=== PATIENT | male | born 1970 | race Caucasian/White ===

== ENCOUNTER 2017-12-19 03:50 | Inpatient (IN) ==
--- NOTE | 2017-12-19 03:56 | Emergency Department Note ---
Disposition Clinical Impression: Right leg pain, Arterial occlusion Disposition: Admitted As Inpatient Condition: Good General Adult HPI - General Time Seen by Provider: 12/19/17 03:53 - Related Data Allergies Allergy/AdvReac Type Severity Reaction Status Date / Time No Known Allergies Allergy Verified 12/19/17 01:12 Past Medical History - Past Medical History Medical history: Reports: hypertension Surgical history: Reports: no surgical history Psychiatric history: Reports: no psych history - Social History Smoking Status: Current every day smoker Smokeless Tobacco Status: No Alcohol use: Reports: occasionally Drug use: Reports: none Course Vital Signs Temperature 98.1 F 12/19/17 03:59 Pulse Rate 72 12/19/17 03:59 Respiratory Rate 20 12/19/17 03:59 Blood Pressure 143/80 12/19/17 03:59 O2 Sat by Pulse Oximetry 99 12/19/17 03:59 Temperature 98.1 F 12/19/17 03:59 Pulse Rate 70 12/19/17 06:30 Respiratory Rate 20 12/19/17 06:30 Blood Pressure 140/80 12/19/17 06:30 O2 Sat by Pulse Oximetry 98 12/19/17 06:30 Oxygen Delivery Oxygen Delivery Room Air Critical Care Time Critical Care Time: Yes Total Critical Care Time: 30 Attestation: The high probability of a clinically significant, sudden or life threatening deterioration of the [] system(s) required my full and direct attention, intervention and personal management. The aggregate critical care time was [] minutes. This time is in addition to time spent performing reported procedures but includes the following: [] Data Review and interpretation [] Patient assessment and monitoring of vital signs [] Documentation [] Medication orders and management Attestation Statement - Attestation Attestation: I examined this patient and my medical decision-making was reviewed with the Resident Physician. I agree with the documented findings, disposition and treatment plan as described except to the extent set forth below. [id number] time provided Patient arrives from an outside facility with atraumatic right lower extremity pain starting today. He does note intermittent muscle cramps over the past several weeks. Pain extends from the right mid lower extremity distally. He was sent with concern for arterial insufficiency. The patient's right foot is pink warm and dry upon arrival. Heparin was initiated by the sending facility
[2017-12-19] MEDS ORDERED: Heparin 25,000 UNIT/500 ML D5W 25,000 UNIT/500 ML BAG IVC SCH (04:00)
--- NOTE | 2017-12-19 04:02 | Emergency Department Note ---
Disposition Clinical Impression: Right leg pain, Arterial occlusion Disposition: Admitted As Inpatient Condition: Good Referrals: NONE,PCP [Primary Care Provider] - Time of Disposition: 06:34 General Adult HPI - General Time Seen by Provider: 12/19/17 03:53 Source: patient Mode of arrival: ambulatory Limitations: no limitations Nursing Notes Reviewed: Yes Vital Signs Reviewed: Yes - History of Present Illness HPI Narrative: 47-year-old male tobacco abuser presents emergency department as a transfer from outside facility for reported cold right foot. Patient reports waken up yesterday morning 8 o'clock with pain mostly to his right lower extremity, ongoing for approximately 20 hours. He does have a history of sciatica and states it typically radiates from his back down to his leg. He was evaluated outside facility reports of a dusky right foot and palpable pulse. The concern is for possible occlusion. He has no history of coronary arterial disease. No history stent placement. No calf tenderness. No recent injury or trauma No recent long-distance travel. He does not take any blood thinning medications. He was given heparin prior to transfer over to this facility for evaluation. He denies any G.I. bleed symptoms. - Related Data Allergies Allergy/AdvReac Type Severity Reaction Status Date / Time No Known Allergies Allergy Verified 12/19/17 01:12 All systems ED: reviewed and negative except as stated. Review of Systems: As Per HPI Constitutional: Denies: fever Cardiovascular: Denies: chest pain, palpitations Respiratory: Denies: dyspnea Gastrointestinal: Denies: abdominal pain, nausea, vomiting Musculoskeletal: Denies: back pain Neurological: Denies: headache Past Medical History - Past Medical History Attestation: Yes The following information was validated with the patient. Source: patient Medical history: Reports: hypertension Surgical history: Reports: no surgical history Psychiatric history: Reports: no psych history - Social History Smoking Status: Current every day smoker Smokeless Tobacco Status: No Alcohol use: Reports: occasionally Drug use: Reports: none Physical Exam - General Limitations: no limitations General appearance: alert, in no apparent distress - Head Head exam: atraumatic, normocephalic, normal inspection - Neck Neck exam: Present: normal inspection, full ROM, trachea midline - Chest Chest inspection: Present: normal inspection, symmetric chest wall rise - Respiratory Respiratory exam: Present: normal lung sounds bilaterally. Absent: respiratory distress, wheezes - Cardiovascular Cardiovascular exam: Present: regular rate, normal rhythm, normal heart sounds - Expanded Cardiovascular Exam Peripheral pulses: 0: posterior tibialis (R), dorsalis pedis (R), 2+: radial (R) , radial (L), posterior tibialis (L), dorsalis pedis (L) - Extremities Exam Extremities exam: Present: full ROM, normal capillary refill, other (The right foot is slightly cooler to the touch compared to the left). Absent: tenderness , pedal edema, calf tenderness - Neurological Exam Neurological exam: Present: alert, oriented X3 - Psychiatric Psychiatric exam: Present: normal affect, normal mood - Skin Skin exam: Present: dry, intact, normal color, pallor, other (Right foot is cool to the touch) Course Course Narrative: Patient presents with cold right lower extremity. Reported palpable pulse at outside facility. He has good cap refill. Difficult to palpate a pulse at this time. Unable to obtain with a Doppler ultrasound. Will obtain ankle brachial index. He has been placed on heparin. No prior history of peripheral vascular disease. No history of coronary arterial disease. He does smoke. Currently his pain is controlled at this time. - Reevaluation(s) Reevaluation #1: Cardio Doppler has been patient and will be arriving to perform DANNIE. Patient appears in no acute distress. No further concerns at this time. Time: 04:50 Reevaluation #2: Preliminary report from cardio Doppler ultrasonography for with abnormal DANNIE in the right leg, unable to obtain any read. Patient is already heparinized. Will contact vascular surgery for consultation and plan for hospitalist admission. Time: 06:23 - Consultations Consultation #1: Spoke to on-call vascular surgeon Dr. Brennan the states this is a very unusual case to have acute arterial occlusion recommends a CTA runoff to evaluate for any other abnormalities. Patient denies any abdominal pain. At this time will evaluate with EKG as well. He has no history of a regular heart rhythm or atrial fibrillation. Time: 06:26 Consultation #2: Spoke with on-call hospitalist marisabel Bird to admit for arterial occlusion. No further orders at this time, CTA runoff pending Time: 06:34 Vital Signs Temperature 98.1 F 12/19/17 03:59 Pulse Rate 72 12/19/17 03:59 Respiratory Rate 20 12/19/17 03:59 Blood Pressure 143/80 12/19/17 03:59 O2 Sat by Pulse Oximetry 99 12/19/17 03:59 Temperature 98.1 F 12/19/17 03:59 Pulse Rate 70 12/19/17 06:30 Respiratory Rate 20 12/19/17 06:30 Blood Pressure 140/80 12/19/17 06:30 O2 Sat by Pulse Oximetry 98 12/19/17 06:30 Oxygen Delivery Oxygen Delivery Room Air Medical Decision Making - MDM Narrative Medical decision making narrative: Patient was discussed with my attending physician who agrees with ED management and final disposition. They independently evaluated the patient. Please refer to their attestation to this encounter for additional information. This note was generated by [employer] voice recognition software and as a result grammatical or spelling errors may occur using this program. - Medical Records Medical records reviewed: Yes I reviewed the patient's medical records. - Lab Data Lab results reviewed: Yes I reviewed the patient's lab results.
[2017-12-19] MEDS ORDERED: Isovue-370 500 ML INFUS..BTL IV ONE (06:27)
[2017-12-19] MEDS ORDERED: *HR* FentaNYL (PF) 100 MCG/2 ML VIAL IVP ONE (06:31)
[2017-12-19] MEDS ORDERED: Naloxone 0.4 MG/ML INJ IVP PRN ×2 (06:41→13:03)
[2017-12-19] MEDS ORDERED: Acetaminophen 325 MG TABLET PO PRN ×2 (06:41→13:03)
[2017-12-19] MEDS ORDERED: *HR* HYDROcodone/Acet 5/325 mg TABLET PO PRN (06:41)
[2017-12-19] MEDS ORDERED: *HR* OxyCODONE Immed Rel 5 MG TABLET PO PRN ×3 (06:41→13:03)
--- NOTE | 2017-12-19 08:48 | Anesthesia Evaluation PreOp ---
Date of Encounter: 12/19/17 Time of Encounter: 09:35 - Past History Planned Operation: Right Lower Extremity Thrombectomy Cardiac History: Denies any Significant Hx Pulmonary History: Smoker (20+ years), Snore ARBORER History: Denies Any Significant HX Other Medical History: GERD Anesthesia History: No Prior Anesthetic Complications, Past Anesthesia Alcohol Use: occasionally Drug use: none Medications and Allergies 3 Allergy/AdvReac Type Severity Reaction Status Date / Time No Known Allergies Allergy Verified 12/19/17 01:12 - Meds/Allergy Pre-op Review Medications Reviewed: Yes Allergies Reviewed: Yes Beta Blockers on Current Med List: No Anesthesia Results - Labs Laboratory Tests 12/19/17 12/19/17 12/19/17 02:12 02:12 02:12 WBC 13.7 H Hgb 15.9 Hct 45.4 Plt Count 249 PT 11.4 INR 1.0 APTT 36.5 H Sodium 137 Potassium 3.6 BUN 21 H Creatinine 1.09 Anesthesia Exam Vital Signs/O2 Sat, Most Current Temp Pulse Resp BP Pulse Ox 98.2 F 64 18 149/94 95 12/19/17 08:04 12/19/17 08:04 12/19/17 08:04 12/19/17 08:04 12/19/17 08:04 Height: 5'9''/1.75m Weight: 190 lbs/86.2 kg NPO (# of Hours): 8 Pain Scale: 6 (right leg) Pain Scale Used: Numeric (1 - 10) - HEENT Pupil (Motor): EOMI Mallampati: III Teeth: Normal (chipped upper left molar) Oral Opening: Greater than 3 - ARBORER LOC: Oriented ARBORER Motor: Normal RUE, Normal LUE, Normal RLE, Normal LLE, Normal Face ARBORER Sensory: Normal: RUE, LUE, LLE, Face, Deficit: RLE - Cardiac Rhythm: Regular Murmur: None - Pulmonary Breath Sounds: bilateral Clear Respiratory Effort: Symmetrical Anesthesia Assess/Plan ASA Score: 2 Modified John Scale for Level of Consciousness: Cooperative, oriented, and tranquil Anesthetic Plan: General Monitoring Plan: Standard Monitors Recovery Plan: PACU
--- NOTE | 2017-12-19 08:52 | Vascular/Endovasc Consult Note ---
Date of Encounter: 12/19/17 Time of Encounter: 08:15 Assessment and Plan (1) Ischemia of right lower extremity Current Visit: Yes Status: Acute The pathophysiology and natural history of acute limb ischemia was discussed with the patient and all questions were answered. The patient has a right iliac occlusion as well as a right popliteal and proximal tibial artery occlusion by CT scan. Given the delayed presentation and severity of his symptoms immediate revascularization is recommended. The risk, benefits and alternatives were discussed and all questions were answered. He was informed that given the severity and delayed presentation is at an increased risk for amputation. He expressed understanding and wishes to proceed. (2) Tobacco abuse Current Visit: Yes Status: Chronic The patient reports he smokes cigars daily. He was advised to discontinue smoking immediately. That continued tobacco abuse and likely worsen his atherosclerosis and associated complications including heart attack, stroke, limb loss, organ failure and/or . He expressed understanding. (3) Moderate protein malnutrition Current Visit: Yes Status: Acute - History of Present Illness Consult date: 12/19/17 Requesting physician: Zenon Keller Consult reason: Acute right lower extremity ischemia Chief complaint: Right leg pain and parasthesias History of present illness: Mr. Flores is a 47 year old male with a history of tobacco abuse. The patient reports a 2 week history of right lower extremity calf claudication. He reports that his symptoms became acutely worse yesterday morning. He did not seek immediate medical attention if that he had a nerve problem. Due to the progressive nature of his symptoms he presented to the emergency room and was transferred to [facility]. The patient underwent vascular labs and is found have no significant pedal signals by Doppler in the right lower extremity. Vascular surgery was counsulted for further evaluation. The patient denies any fevers or chills. He denies any palpitations. He denies any symptoms prior to 2 weeks ago. He denies any chest pain or shortness of breath. Past Med Surg Social Fam HX - Past Medical History Medical history: hypertension Psychiatric history: no psych history - Past Surgical History Surgical History: no surgical history, cholecystectomy, herniorrhaphy, tonsilectomy Additional surgical history: crushed big toe, inguinal hernia repair - Social History Smoking Status: Current every day smoker Packs per day: 0.5 Smokeless Tobacco Status: No Alcohol use: occasionally Drug use: none Medications and Allergies 3 Allergy/AdvReac Type Severity Reaction Status Date / Time No Known Allergies Allergy Verified 12/19/17 01:12 All Systems Review: The remainder of the systems were reviewed and are negative Exam Vital Signs, Last 4 Hours Temp Pulse Resp BP Pulse Ox 12/19/17 08:04 98.2 F 64 18 149/94 95 General: Present: Conversant, No Apparent Distress HEENT: Present: Pupils equal Neck: Absent: JVD, Lymphadenopathy, Left Carotid bruit, Right Carotid bruit Cardiac: Present: Reg Rate and Rhythm, Normal S1 and S2, No Murmur Lungs: Present: Normal Breath Sounds, No Wheeze, Rales, Rhonchi Neuro: Present: Alert and responsive, Other (Decreased right lower extremity motor and sensory function.) Abdomen: Present: Soft, Non-tender. Absent: Masses Vascular: Present: Normal capillary refill (Left lower extremity), Capillary refill delayed (Right lower extremity), Pulse, absent (Right femoral, popliteal , posterior tibial and dorsalis pedis), Pulse, normal (Left lower extremity) Skin: Present: No rashes noted on visualized skin Consult Discharge Plan - Plan
[2017-12-19] MEDS ORDERED: *HR* Propofol 200 MG/20 ML VIAL IVP ONE (09:22)
[2017-12-19] MEDS ORDERED: *HR* FentaNYL (PF) 100 MCG/2 ML VIAL ONE ×2 (09:22→11:20)
[2017-12-19] MEDS ORDERED: *HR* Midazolam HCl 2 MG/2 ML VIAL ONE (09:22)
[2017-12-19] MEDS ORDERED: *HR* Succinylcholine 200 MG/10 ML VIAL IVP ONE (09:23)
[2017-12-19] MEDS ORDERED: Lidocaine -MPF 2% 2 ML VIAL ONE (09:23)
[2017-12-19] MEDS ORDERED: *HR* Rocuronium Bromide 50 MG/5 ML VIAL ONE (09:23)
[2017-12-19] MEDS ORDERED: *HR* Phenylephrine 10 MG/ML VIAL ONE (09:27)
[2017-12-19] MEDS ORDERED: Vancomycin 1,000 MG VIAL ONE (09:30)
[2017-12-19] MEDS ORDERED: Heparin 1,000 UNITS/500 mL 1,500 ML ONE (09:30)
[2017-12-19] MEDS ORDERED: *HR* Labetalol 100 MG/20 ML MDV ONE (09:32)
[2017-12-19] MEDS ORDERED: NiCARdipine 2.5 MG/10 ML Syringe IVPB ONE (09:32)
[2017-12-19] MEDS ORDERED: *HR* Heparin 5,000 UNIT/ML VIAL ONE (09:35)
[2017-12-19] MEDS ORDERED: Albuterol 2.5 MG/3 ML NEBULIZER IH ONE (09:38)
[2017-12-19] MEDS ORDERED: Lidocaine -MPF 4% 5 ML AMPUL ONE (09:39)
[2017-12-19] MEDS ORDERED: Albuterol 2.5 MG/3 ML NEBULIZER ONE (09:40)
[2017-12-19] MEDS ORDERED: *HR* HYDROmorphone 2 MG/ML SYRINGE ONE (10:06)
[2017-12-19] MEDS ORDERED: Bupivacaine-MPF 0.25% 10 ML VIAL ONE (11:00)
[2017-12-19] MEDS ORDERED: Ondansetron 4 MG/2 ML VIAL ONE (11:06)
[2017-12-19] MEDS ORDERED: EPHEDrine 50 MG/ML VIAL ONE (11:37)
[2017-12-19] MEDS ORDERED: ceFAZolin 2,000 MG in Water for inj. (sterile) 20 ML 10 ML IVP ONE (11:38)
[2017-12-19] MEDS ORDERED: ceFAZolin 2,000 MG in Water for inj. (sterile) 20 ML 20 ML IVP ONE (12:00)
[2017-12-19] MEDS ORDERED: Ondansetron 4 MG/2 ML VIAL IVP ONE (12:03)
[2017-12-19] MEDS ORDERED: *HR* HYDROmorphone (PF) 1 MG/ML SYRINGE IVP PRN (12:03)
[2017-12-19] MEDS ORDERED: *HR* Promethazine 25 MG/ML VIAL IVP PRN (12:03)
--- NOTE | 2017-12-19 12:41 | Operative Note ---
Date of procedure: 12/19/17 Pre-op diagnosis: Acute right lower extremity ischemia Post-op diagnosis: same Procedure: 1. Right lower extremity thrombectomy with 4 cook islander and 5 cook islander christelle embolectomy catheter. Complications: None Anesthesia: GETA Surgeon: Maksim Brennan Was there an assistant football coach present: No Estimated blood loss (cc): 100 Specimen: Right lower extremity thrombus Condition: stable Disposition: same day Procedure in Detail: Indication: The patient is a 47-year-old male with history of tobacco abuse. Patient reports approximately two-week history of progressive right lower extremity disabling claudication. Approximately 24 to 36 hours ago he developed acute progression of his pain in his right calf and foot. He reported decreased sensation and motor function. He presented to the emergency room this morning was found have an ankle brachial index of 0.0. Emergent revascularization was recommended to reduce his risk of limb loss alleviate his symptoms. Procedure: The patient was identified in the preoperative area. The risks, benefits and alternatives were discussed and all questions were answered. The patient was taken to the operating room and placed in the supine position on the operating room table. After the induction of general endotracheal anesthesia, the patient was cleaned and draped in the normal sterile fashion. An oblique incision was made over the right femoral vessels sharply. Hemostasis was obtained with electrocautery. Through a process of blunt, sharp and electrocautery dissection, the distal external iliac, deep and superficial femoral arteries were dissected and surrounded with vessel loops. The patient received a bolus of heparin and the vessels were occluded with the vessel loops. A transverse arteriotomy was made low on the common femoral artery. No flow was noted on release of the proximal loop. A 5 cook islander christelle catheter was passed into the aorta and inflated. It was withdrawn and significant acute thromboembolic material was retrieved. Multiple additional passes revealed no additional thrombus. The specimen was then sent to pathology. Brisk, pulsatile antegrade flow was then noted through the common femoral artery. A 4 cook islander christelle catheter was passed distally and no thrombus was retrieved from the deep femoral artery. A 4 cook islander christelle catheter was passed distally into the tibial vessels. Extensive acute thrombus was removed. Additional passes resulted additional thrombus retrieval. The catheter was passed distally until multiple retrievals resulted in no additional thrombus. Retrograde flow was noted through the superficial femoral artery. The femoral vessels were flushed with heparin. The arteriotomy was reapproximated with 6-0 Prolene. Flow was restored. A polyphasic signal was identified in the posterior tibial and dorsalis pedis arteries below the ankle. The wound was irrigated with antibiotic containing saline. Hemostasis was obtained with electrocautery. The wound was reapproximated with 2-0 and 3-0 vicryl. Skin was reapproximated with 3-0 Monocryl. Local anesthetic was infused along the incision. Sterile dressings were applied. The patient was extubated and taken to the recover room in stable condition.
--- NOTE | 2017-12-19 12:58 | Anesthesia Evaluation Post Op ---
Date of Encounter: 12/19/17 Time of Encounter: 12:58 - Vital Signs Vital Signs: Vital Signs/O2 Sat, Most Current Temp Pulse Resp BP Pulse Ox 97.5 F L 81 18 134/84 97 12/19/17 12:25 12/19/17 12:45 12/19/17 12:45 12/19/17 12:45 12/19/17 12:45 - Lungs Lungs: Clear Ascult./Percussion - Airway Airway: Non-obstructed - Cardiovascular Regular Rate - Mental Status Mental Status: Alert & Oriented, Answers Appropriately - Pain Pain Scale: 5 Pain Scale used: Numeric (1 - 10) - Nausea Vomiting Nausea Vomiting: Not Present - Hydration Hydration: NPO, Hobson catheter - Discharge PostOp Status: Transfer Patient to floor
[2017-12-19] MEDS ORDERED: 0.9 % Sodium Chloride 1,000 ML IVC SCH (13:03)
[2017-12-19] MEDS ORDERED: *HR* Labetalol 20 MG/4 ML SYRINGE IVP PRN (13:03)
[2017-12-19] MEDS ORDERED: OXYCODONE Oral CONC 10 MG/0.5 ML ORAL.SYG SL PRN ×2 (13:03)
[2017-12-19] MEDS ORDERED: Ondansetron 4 MG/2 ML VIAL IVP PRN (13:03)
--- NOTE | 2017-12-19 13:21 | Internal Med History&Physical ---
Date of Encounter: 12/19/17 Time of Encounter: 13:17 Internal Medicine - H&P: HPI Chief complaint: "Right leg pain" Admitted From: Emergency Dept Plans for Post Hospital Care: Home History of present illness: Mr. Flores is a 47 year old male with PMH of tobacco use who presents to ED this morning as transfer from OSH for cold right foot. He states that he was awoke from bed duet to pain the day prior. At OSH, the foot had no palpable pulses. He denies any other chronic medical conditions. He was given heparin and transferred to ER here. Carotid doppler showed abnormal DANNIE in right leg. CTA runoff showed complete occlusions of the right common iliac and popliteal arteries with distal reconstitution. He was taken to the OR prior to my history and physical examination. He is currently POD #0 s/p RLE thrombectomy. He states that pain is now better. He denies fever, chills, chest pain, SOB, nausea, vomiting, abdominal pain, changes in bladder, or changes in bowels. He has no complaints at this time. Past Med Surg Social Fam HX - Past Medical History Attestation: Yes The following information was validated with the patient. Source: patient Medical history: hypertension Psychiatric history: no psych history - Past Surgical History Surgical History: no surgical history, cholecystectomy, herniorrhaphy, tonsilectomy Additional surgical history: crushed big toe, inguinal hernia repair - Social History Smoking Status: Current every day smoker Packs per day: 0.5 Smokeless Tobacco Status: No Alcohol use: occasionally Drug use: none - Additional Family History Additional family history: No significant family history per patient. Internal Medicine - H&P: Meds Cetirizine HCl [All Day Allergy] 10 mg PO DAILY 12/19/17 [History] Fluticasone Propionate [Allergy Relief] 1 spr NS DAILY 12/19/17 [History] 3 Allergy/AdvReac Type Severity Reaction Status Date / Time No Known Allergies Allergy Verified 12/19/17 01:12 All Systems PM: A 10-system review of systems was performed and is negative for pertinent findings except as documented above in the HPI. - Constitutional Vitals: Temp Pulse Resp BP Pulse Ox 98.0 F 78 97 135/85 97 12/19/17 12:55 12/19/17 12:55 12/19/17 12:55 12/19/17 12:55 12/19/17 12:55 General appearance: Present: cooperative, A&O X 3, pleasant, no acute distress, obese, answers questions appropriately - Head Head exam: Present: atraumatic, normocephalic - Eye Eye exam: Present: EOMI, PERRL. Absent: conjunctival injection, nystagmus, scleral icterus - ENT ENT exam: Present: mucous membranes moist, normal external ear exam, normal oropharynx - Neck Neck exam general surgery: Present: supple, trachea midline. Absent: lymphadenopathy, tenderness, thyromegaly - Respiratory Respiratory exam: Present: CTAB. Absent: accessory muscle use, rales, rhonchi, wheezes Additional comments: Normal WOB - Cardiovascular Cardiovascular exam: Present: RRR, +S1, +S2. Absent: diastolic murmur, gallop, rubs, systolic murmur Additional comments: No BLE edema - GI/Abdominal GI/Abdominal exam: Present: normal bowel sounds, soft. Absent: distended, hepatomegaly, mass, splenomegaly, tenderness - Extremities Exam Extremities exam: Present: normal capillary refill, normal inspection, radial pulses palpable and symmetrical. Absent: cyanotic, joint swelling, pedal edema , tenderness - Neurological Exam Neurological exam: Present: alert, CN II-XII intact, oriented X3, reflexes normal, no focal deficits, strengths equal and symetr throughout. Absent: motor sensory deficit, facial droop, speech deficit - Psychiatric Psychiatric exam: Present: normal affect, normal mood. Absent: agitated, anxious, depressed - Skin Skin exam: Present: dry, warm. Absent: cyanosis, erythema, rash - Assessment and plan (1) Ischemia of right lower extremity Current Visit: Yes Status: Acute Assessment and plan: Admit inpatient with telemetry. Vascular surgery consulted; appreciate input. He is now POD #0 s/p right lower extremity thrombectomy. He tolerated procedure without complications. Continue heparin drip. Continue pain control with tylenol, norco, and oxycodone. Counselled on smoking cessation. Will await further recommendations from vascular surgery. Recheck labwork in AM. (2) Arterial occlusion Current Visit: Yes Status: Acute Assessment and plan: Management as per above. (3) Vascular abnormality Current Visit: Yes Status: Acute Assessment and plan: Management as per above. (4) Right leg pain Current Visit: Yes Status: Acute Assessment and plan: Management as per above. (5) Tobacco abuse Current Visit: Yes Status: Chronic Assessment and plan: Counselled on smoking cessation. (6) Elevated blood pressure reading Current Visit: Yes Status: Acute Assessment and plan: Nursing staff reports some elevated BP. Will monitor vitals closely. Continue hydralazine PRN and labetalol PRN for now. (7) DVT prophylaxis Current Visit: Yes Status: Acute Assessment and plan: Start SCDs and continue heparin drip as per above. - Time Spent With Patient Total time spent is greater than 50% in coordination of care (as documented) at patient's floor/unit and/or counseling patient: less than 15 minutes
[2017-12-19] MEDS: Aspirin Enteric Coated 81 MG Tablet PO SCH (13:56)
[2017-12-19] MEDS ORDERED: *HR* Heparin 5,000 UNIT/ML VIAL IVP ONE (13:58)
[2017-12-19] MEDS ORDERED: *HR* Heparin 5,000 UNIT/ML VIAL IVP PRN ×2 (13:58)
[2017-12-19] MEDS: Heparin 25,000 UNIT/500 ML D5W 25,000 UNIT/500 ML BAG IVC SCH (15:15)
[2017-12-19] MEDS: *HR* HYDROcodone/Acet 5/325 mg TABLET PO PRN (21:31)
[2017-12-20] MEDS: *HR* OxyCODONE Immed Rel 5 MG TABLET PO PRN ×2 (00:27→16:44)
[2017-12-20 00:37] LABS: Basophils % 0.1 %; Hematocrit 39.6 % (37.5-50.1); Hemoglobin 13.6 g/dL (12.9-16.9); Immature Granulocytes % 0.3 % (0-4); Lymphocytes # 0.8 K/mcL (0.6-4.6); Lymphocytes % 7.2 %; Mean Corpuscular HGB Conc 34.3 g/dL (31.6-35.5); Mean Corpuscular Hemoglobin 29.4 pg (28.0-33.3); Mean Corpuscular Volume 85.7 fL (83.0-100.0); Mean Platelet Volume 9.5 fL (9.4-12.4); Monocytes # 0.5 K/mcL (0.0-1.3); Monocytes % 4.4 %; Neutrophils # 10.1 K/mcL (1.6-8.9); Platelet Count 189 K/mcL (140-400); Red Blood Count 4.62 M/mcL (4.19-5.50); Red Cell Distribution Width 13.2 % (11.5-14.5)
[2017-12-20 00:46] LABS: Prothrombin Time 11.6 Seconds (9.4-12.1)
[2017-12-20 00:57] LABS: BUN/Creatinine Ratio 13 (6-26); Blood Urea Nitrogen 12 mg/dL (6-20); Calcium 8.4 mg/dL (8.6-10.3); Carbon Dioxide 23 mEq/L (23-29); Chloride 107 mEq/L (98-107); Glucose 137 mg/dL (70-105); Osmolality,Calculated 284 (280-300); Potassium 4.4 mEq/L (3.5-5.1); Sodium 136 mEq/L (136-145); eGFR For Non-African Americans > 60 (> 60)
[2017-12-20] MEDS: Heparin 25,000 UNIT/500 ML D5W 25,000 UNIT/500 ML BAG IVC SCH (05:38)
[2017-12-20] MEDS: Fluticasone Propionate Nasal 50 MCG/SPRAY BOTTLE NS SCH (07:10)
[2017-12-20] MEDS: Aspirin Enteric Coated 81 MG Tablet PO SCH (07:10)
[2017-12-20] MEDS: Loratadine 10 MG TABLET PO SCH (07:11)
--- NOTE | 2017-12-20 11:43 | Vascular/Endovas Progress Note ---
Date of Encounter: 12/20/17 Time of Encounter: 07:50 - Assessment and plan (1) Ischemia of right lower extremity Current Visit: Yes Status: Acute The patient is postoperative day #1 after a right lower extremity embolectomy. His foot is now viable. He has palpable pedal pulses. His incision appears to be healing well. The patient underwent echocardiogram today is found have a patent foramen ovale. The patient will continue with his daily aspirin. Recommend cardiology consultation for management of his PFO in the setting of acute arterial thromboembolism. The patient may be discharged from a vascular surgery standpoint pending recommendations cardiology. The patient will follow- up in vascular clinic as scheduled. (2) Tobacco abuse Current Visit: Yes Status: Chronic He was counseled again regarding atherosclerotic risk factor reduction and smoking cessation. (3) Moderate protein malnutrition Current Visit: Yes Status: Acute Patient's diet has been advanced. - Subjective Interval history: The patient reports his leg pain has resolved today. He reports adequate incisional pain control. He denies any chest pain or shortness of breath. - Physical Examination General: Present: Conversant HEENT: Present: Pupils equal Cardiac: Present: Reg Rate and Rhythm Neuro: Present: Alert and responsive, Motor nerves grossly intact, Sensory nerves grossly intact Vascular: Present: Normal capillary refill, Pulse, normal, Surgical incisions ( Incision clean dry and intact without hematoma). Absent: Cyanosis, Edema Abdomen: Present: Soft, Non-tender Skin: Present: No rashes noted on visualized skin - VTE Documentation of Mechanical Device: Venous foot pump, device Results 12/20/17 00:16 12/20/17 00:16 Lab Results, Last 24 hours 12/20/17 12/20/17 12/20/17 00:16 00:16 00:16 WBC 11.5 H Hgb 13.6 D Hct 39.6 Plt Count 189 INR 1.0 Sodium 136 Potassium 4.4 Chloride 107 Carbon Dioxide 23 BUN 12 Creatinine 0.90 Glucose 137 H Calcium 8.4 L - Imaging / Other Tests Echo: report reviewed (PFO identified) Consult Discharge Plan - Plan Additional Instructions: May remove bandage and shower on 12/21/2017. No tub baths or swimming until 01/12/2018. Wash wound gently and pat to dry. Applied dry gauze to wound daily for [address] Brennan at [phone] with questions or concerns. Referrals: Caroline Liao CNP [Advanced Practice Nurse] - 12/28/17 10:45 am (Please take with you your new patient packet that you will receive in the mail filled out to your appointment. Show up 10 mins early. Please take with you to your appointment Picture ID, Ins. Card and all medications even over the counter medication. This office does not give out Narcotics. If you need to cancel please cancel 24 hours prior to your appointment call [phone].) Maksim Brennan MD [Partnered Physician] - 01/31/18 1:00 pm
[2017-12-20] MEDS: *HR* HYDROcodone/Acet 5/325 mg TABLET PO PRN ×2 (15:05→21:51)
--- NOTE | 2017-12-20 16:25 | Internal Med Progress Note ---
Hospitalist Progress Note - Encounter Date of Encounter: 12/20/17 Time of Encounter: 16:24 - Subjective Interval History: Patient had no acute events overnight. Pain in RLE is greatly improved; now with just numbness/tingling in toes. He denies fever, chills, chest pain, SOB, nausea, vomiting, or abdominal pain. He has no other complaints at this time. - Exam Vitals: Temp Pulse Resp BP Pulse Ox 98.2 F 66 18 130/78 93 12/20/17 15:24 12/20/17 15:24 12/20/17 15:24 12/20/17 15:24 12/20/17 15:24 Exam: Gen - Awake, alert, no acute distress HEENT - NCAT, PERRLA, EOMI, hearing grossly intact, oropharynx benign CV - RRR, normal S1 and S2, no M/R/G, no BLE edema Resp - Normal WOB, CTAB, no W/R/R GI - Soft, NT/ND, no masses, normal bowel sounds, no HSP Skin - Warm, dry, no rashes/lesions/ulcers, surgical incision clean/dry/intact Psych - Normal mood and affect, no depression or anxiety - Assessment and Plan (1) Ischemia of right lower extremity Current Visit: Yes Status: Acute Assessment and Plan: Vascular surgery consulted; appreciate input. He is now POD #1 s/p right lower extremity thrombectomy. He tolerated procedure without complications. Wound looks good today. Continue heparin drip and aspirin; will defer long-term anti- coagulation to vascular surgery. Continue pain control with tylenol, norco, and oxycodone. Counselled on smoking cessation. ECHO today showed PFO; will consult cardiology as per below. Vascular surgery ok with discharge home after cleared by cardiology. Recheck labwork in AM. (2) Arterial occlusion Current Visit: Yes Status: Acute Assessment and Plan: Management as per above. (3) Right leg pain Current Visit: Yes Status: Acute Assessment and Plan: Management as per above. (4) Tobacco abuse Current Visit: Yes Status: Chronic Assessment and Plan: Counselled on smoking cessation. (5) Elevated blood pressure reading Current Visit: Yes Status: Resolved Assessment and Plan: Resolved. Will monitor vitals closely. Continue hydralazine PRN and labetalol PRN for now. (6) PFO (patent foramen ovale) Current Visit: Yes Status: Acute Assessment and Plan: Noted on ECHO from today. Cardiology consulted; appreciate input. Will await any recommendations prior to discharge. (7) DVT prophylaxis Current Visit: Yes Status: Acute Assessment and Plan: Continue SCDs and heparin drip as per above. - Summary of Assessment and Plan Summary of Assessment and Plan: Plan for discharge after cleared by cardiology. Will need to consult with vascular surgery about need for long-term anticoagulation. - Time Spent with Patient Total time spent is greater than 50% in coordination of care (as documented) at patient's floor/unit and/or counseling patient: less than 15 minutes Plan of Care Discussed with: patient (Nurse, Pharmacist) Internal Medicine: Result - Labs CBC & Chem 7: 12/20/17 00:16 12/20/17 00:16 Labs: Short CBC 12/20/17 Range/Units 00:16 WBC 11.5 H (4.3-11.1) K/mcL Hgb 13.6 D (12.9-16.9) g/dL Hct 39.6 (37.5-50.1) % Plt Count 189 (140-400) K/mcL Neutrophils # 10.1 H (1.6-8.9) K/mcL BMP 12/20/17 00:16 Sodium 136 Potassium 4.4 Chloride 107 Carbon Dioxide 23 BUN 12 Creatinine 0.90 Glucose 137 H Calcium 8.4 L - ABG Interpretation ABG results: PT/INR, D-dimer PT 11.6 Seconds (9.4-12.1) 12/20/17 00:16 - Impressions Impressions Echocardiogram 12/20/17 07:00 Impressions: LVEF 60%. Normal left ventricular diastolic function. Normal right ventricular structure and function. No significant valvular dysfunction. No pulmonary hypertension. No intra-cardiac evidence of thrombus. There is a PFO by agitated saline contrast. Left Ventricular Wall Motion: Rest Echo Findings All wall segments showed normal motion. Findings: Study Quality * Technically adequate exam. ECG Findings * Normal sinus rhythm. Left Ventricle * LVEF 60%. * Normal LV chamber size, wall thickness and function. * Normal left ventricular diastolic function. Right Ventricle * Normal right ventricular structure and function. Left Atrium * Normal left atrial size. Right Atrium * Normal right atrial size. Mitral Valve * Normal mitral valve structure. * No mitral stenosis. * No mitral regurgitation. Aortic Valve * No aortic regurgitation. * Aortic valve not well visualized. * No aortic stenosis. Tricuspid Valve * Tricuspid valve not well visualized. * Trace tricuspid regurgitation. * Estimated RA pressure is 3 mmHg. * Estimated RVSP is 14 mmHg. * No pulmonary hypertension. Pulmonic Valve * Pulmonic valve is not well visualized. * No pulmonic stenosis. * No pulmonic regurgitation. Pulmonary Artery * Pulmonary artery not well visualized. Aorta * Normally sized aortic root. Pericardium * There is no pericardial effusion present. Interatrial Septum * There is a PFO by agitated saline contrast, IVC * Normal IVC dimensions and inspiratory collapse. - VTE Documentation of Mechanical Device: Venous foot pump, device Consult Discharge Plan - Plan Additional Instructions: May remove bandage and shower on 12/21/2017. No tub baths or swimming until 01/12/2018. Wash wound gently and pat to dry. Applied dry gauze to wound daily for [address] Brennan at [phone] with questions or concerns. Referrals: Caroline Liao CNP [Advanced Practice Nurse] - 12/28/17 10:45 am (Please take with you your new patient packet that you will receive in the mail filled out to your appointment. Show up 10 mins early. Please take with you to your appointment Picture ID, Ins. Card and all medications even over the counter medication. This office does not give out Narcotics. If you need to cancel please cancel 24 hours prior to your appointment call [phone].) Maksim Brennan MD [Partnered Physician] - 01/31/18 1:00 pm
[2017-12-20] MEDS ORDERED: *HR* Heparin 5,000 UNIT/ML VIAL SQ SCH (18:00)
[2017-12-20] MEDS: Nicotine 21 MG PATCH.TD24 TD SCH (20:46)
[2017-12-21] MEDS: *HR* OxyCODONE Immed Rel 5 MG TABLET PO PRN ×2 (00:01→09:06)
[2017-12-21] MEDS: *HR* HYDROcodone/Acet 5/325 mg TABLET PO PRN (04:09)
[2017-12-21 04:58] LABS: Basophils % 0.3 %; Eosinophils # 0.2 K/mcL (0.0-0.6); Immature Granulocytes % 0.4 % (0-4); Lymphocytes # 2.6 K/mcL (0.6-4.6); Lymphocytes % 26.4 %; Mean Corpuscular HGB Conc 33.3 g/dL (31.6-35.5); Mean Corpuscular Hemoglobin 30.2 pg (28.0-33.3); Mean Corpuscular Volume 90.7 fL (83.0-100.0); Mean Platelet Volume 10.1 fL (9.4-12.4); Monocytes # 0.9 K/mcL (0.0-1.3); Monocytes % 9.5 %; Platelet Count 184 K/mcL (140-400); Red Blood Count 4.63 M/mcL (4.19-5.50); Red Cell Distribution Width 13.5 % (11.5-14.5); Segmented Neutrophils % 61.4 %
[2017-12-21 05:20] LABS: BUN/Creatinine Ratio 17 (6-26); Blood Urea Nitrogen 17 mg/dL (6-20); Calcium 8.3 mg/dL (8.6-10.3); Carbon Dioxide 27 mEq/L (23-29); Chloride 107 mEq/L (98-107); Glucose 99 mg/dL (70-105); Osmolality,Calculated 292 (280-300); Potassium 3.8 mEq/L (3.5-5.1); Sodium 140 mEq/L (136-145); eGFR For Non-African Americans > 60 (> 60)
--- NOTE | 2017-12-21 08:35 | Vascular/Endovas Progress Note ---
Date of Encounter: 12/21/17 Time of Encounter: 08:05 - Assessment and plan (1) Ischemia of right lower extremity Current Visit: Yes Status: Acute The patient is postoperative day # 2 after a right lower extremity embolectomy. His foot is well-perfused. His incision is healing well. He was transitioned to Xarelto yesterday. He will be discharged on Xarelto 20 mg daily and aspirin 81 mg daily. He will follow-up in vascular clinic after discharge as scheduled. Patient was found have a patent foramen ovale. Await cardiology input (2) Tobacco abuse Current Visit: Yes Status: Chronic He was counseled again regarding atherosclerotic risk factor reduction and smoking cessation. (3) Moderate protein malnutrition Current Visit: Yes Status: Acute Patient's diet has been advanced. - Subjective Interval history: The patient is without complaints today. He reports adequate pain control. He denies palpitations. He denies chest pain or shortness of breath. Vital Signs, Last 4 Hours Temp Pulse Resp BP Pulse Ox 12/21/17 07:20 97.9 F 64 20 112/70 98 - Physical Examination General: Present: Conversant HEENT: Present: Pupils equal Cardiac: Present: Reg Rate and Rhythm Lungs: Present: Normal Breath Sounds Neuro: Present: Alert and responsive, No focal deficits noted, Motor nerves grossly intact, Sensory nerves grossly intact Vascular: Present: Normal capillary refill, Pulse, normal, Surgical incisions ( Incision clean, dry and intact without erythema or drainage, no hematoma). Absent: Edema Abdomen: Present: Soft - VTE Documentation of Mechanical Device: Venous foot pump, device Results 12/21/17 04:07 12/21/17 04:07 Lab Results, Last 24 hours 12/21/17 12/21/17 04:07 04:07 WBC 9.8 Hgb 14.0 Hct 42.0 Plt Count 184 Sodium 140 Potassium 3.8 Chloride 107 Carbon Dioxide 27 BUN 17 Creatinine 1.03 Glucose 99 Calcium 8.3 L Consult Discharge Plan - Plan Additional Instructions: May remove bandage and shower on 12/21/2017. No tub baths or swimming until 01/12/2018. Wash wound gently and pat to dry. Applied dry gauze to wound daily for [address] Brennan at [phone] with questions or concerns. Referrals: Caroline Liao, AGRICULTURAL SCIENCES PROFESSOR [Advanced Practice Nurse] - 12/28/17 10:45 am (Please take with you your new patient packet that you will receive in the mail filled out to your appointment. Show up 10 mins early. Please take with you to your appointment Picture ID, Ins. Card and all medications even over the counter medication. This office does not give out Narcotics. If you need to cancel please cancel 24 hours prior to your appointment call [phone].) Maksim Brennan MD [Partnered Physician] - 01/31/18 1:00 pm
[2017-12-21] MEDS: Fluticasone Propionate Nasal 50 MCG/SPRAY BOTTLE NS SCH (09:07)
[2017-12-21] MEDS: Nicotine 21 MG PATCH.TD24 TD SCH (09:07)
[2017-12-21] MEDS: Loratadine 10 MG TABLET PO SCH (09:08)
[2017-12-21] MEDS: Aspirin Enteric Coated 81 MG Tablet PO SCH (09:08)
--- NOTE | 2017-12-21 11:23 | Cardiology Consult Note ---
<Vinnie Colón - Last Filed: 12/21/17 11:16> Date of Encounter: 12/21/17 Time of Encounter: 11:16 Assessment and Plan (1) PFO (patent foramen ovale) Status: Acute TTE reviewed. EF preserved. No intracardiac thrombus. Incidentally a PFO was seen. Likely not cause of LE arterial thrombus. No intervention recommended at this time. (2) Arterial occlusion Status: Acute S/p thrombectomy. On xarelto. Management per primary team. Smoking cessation discussed. Discussion w patient/family: The assessment and plan as outlined above was discussed with the patient and/or family members who expressed understanding and agreement. All questions were answered. Thank you for involving us in the care of your patient. Please call with any questions. History of Present Illness Consult date: 12/21/17 Requesting physician: Maksim Brennan Consult reason: PFO Chief complaint: Cold leg History of present illness: Mr. Flores is a 47 year old male who presented with RLE cramping and feeling cold. He was found to have an occluded right common iliac artery and underwent emergent thrombectomy with Dr. Brennan. Cardiology consulted for PFO seen on echocardiogram. TTE was ordered to r/o embolic source. He denies chest pain, SOB, palpitations. Denies othopnea, PND, or edema. C/o leg cramps prior to admission. Past Med Surg Social Fam HX - Past Medical History Attestation: Yes The following information was validated with the patient. Source: patient Medical history: hypertension (Reports history of HTN but resolved) Psychiatric history: no psych history - Past Surgical History Surgical History: no surgical history, cholecystectomy, herniorrhaphy, tonsilectomy Additional surgical history: crushed big toe, inguinal hernia repair - Social History Smoking Status: Current every day smoker Packs per day: 0.5 Smokeless Tobacco Status: No Alcohol use: occasionally Drug use: none Medications and Allergies Cetirizine HCl [All Day Allergy] 10 mg PO DAILY 12/19/17 [History] Fluticasone Propionate [Allergy Relief] 1 spr NS DAILY 12/19/17 [History] Aspirin Enteric Coated [Aspirin EC] 81 mg PO DAILY #30 tablet. 12/21/17 [Rx] HYDROcodone/Acet 5/325 mg [York 5-325 mg] 1 tab PO Q12HR PRN 5 Days #10 tablet 12/21/17 [Rx] Nicotine Patch [Nicoderm] 21 mg TD DAILY #28 patch.td24 12/21/17 [Rx] Rivaroxaban [Xarelto] 20 mg PO 1700 #60 tablet 12/21/17 [Rx] Rivaroxaban [Xarelto] 20 mg PO DAILY 30 Days #30 tablet 12/21/17 [Rx] 3 Allergy/AdvReac Type Severity Reaction Status Date / Time No Known Allergies Allergy Verified 12/19/17 01:12 All Systems Review: The remainder of the systems were reviewed and are negative Physical Examination Vital Signs, Last 4 Hours Temp Pulse Resp BP Pulse Ox 12/21/17 07:20 97.9 F 64 20 112/70 98 General: Conversant, No Apparent Distress HEENT: Atraumatic, Normocephaly, Mucus Membranes Moist Neck: No JVD, Normal carotid pulses Cardiac: Reg Rate and Rhythm, Normal S1 and S2, No Murmur Lungs: Normal Breath Sounds, No Wheeze, Rales, Rhonchi Neuro: Alert and responsive, No focal deficits noted Abdomen: Soft, Non-Tender Skin: No rashes noted on visualized skin Musculoskeletal: No Chest Wall Tenderness Extremities: No Clubbing, No Cyanosis, No Edema, Normal Pulses Results 12/21/17 04:07 12/21/17 04:07 Lab Results 12/21/17 12/21/17 04:07 04:07 WBC 9.8 Hgb 14.0 Hct 42.0 Plt Count 184 Sodium 140 Potassium 3.8 Chloride 107 Carbon Dioxide 27 BUN 17 Creatinine 1.03 Glucose 99 Calcium 8.3 L - Imaging and Cardiology Echo: report reviewed - EKG Interpretation EKG results cardiology: personally reviewed Consult Discharge Plan - Plan Instructions: Peripheral Artery Disease (DC) Additional Instructions: May remove bandage and shower on 12/21/2017. No tub baths or swimming until 01/12/2018. Wash wound gently and pat to dry. Applied dry gauze to wound daily for [address] Brennan at [phone] with questions or concerns. Referrals: Osman Andino DO [Partnered Physician] - (Office to call with follow-up appointment ) Caroline Liao, LEATHER COLORER [Advanced Practice Nurse] - 12/28/17 10:45 am (Please take with you your new patient packet that you will receive in the mail filled out to your appointment. Show up 10 mins early. Please take with you to your appointment Picture ID, Ins. Card and all medications even over the counter medication. This office does not give out Narcotics. If you need to cancel please cancel 24 hours prior to your appointment call [phone].) Maksim Brennan MD [Partnered Physician] - 01/31/18 1:00 pm Prescriptions: HYDROcodone/Acet 5/325 mg [York 5-325 mg] 1 tab PO Q12HR PRN 5 Days #10 tablet PRN Reason: Moderate Pain Aspirin Enteric Coated [Aspirin EC] 81 mg PO DAILY #30 tablet. Nicotine Patch [Nicoderm] 21 mg TD DAILY #28 patch.td24 Rivaroxaban [Xarelto] 20 mg PO DAILY 30 Days #30 tablet Rivaroxaban [Xarelto] 20 mg PO 1700 #60 tablet <Osman Andino - Last Filed: 12/22/17 14:28> Date of Encounter: 12/21/17 - Attending Attestation I have personally performed a face to face evaluation on this patient. I have reviewed and agree with the care plan. History and Exam by me shows: CC: Pain in right leg HPI: Pt presented with complaints of pain in right leg, sudden onset, while at rest 8/10 at most severe, did not improve until taken to OR for thrombolectomy. He has recovered uneventfully, is increasing activity slowly. He underwent echocardiography to evaluate for cardiac source of emboli, found to have small PFO. We are asked to evaluate for anticoagulation recommendations. Pt denies chest pain, pressure, palpitations, headaches, numbness, weakness prior to this hospitalization. He has no previous cardiac history. ROS: Reviewed PMH: Reviewed PE; pt seen and examined, agree with findings as documented. IMP/Plan: 1. PFO: small, incidental findings, not hemodynamically significant, asymptomatic, no additional anticoagulation recs, does not need antibiotic prophalaxis 2. Right lower ext thrombus undergoing successful thrombolectomy, management per vascular surgery. 3. Tobacco abuse: recommend smoking cessation Assessment and Plan Discussion w patient/family: The assessment and plan as outlined above was discussed with the patient and/or family members who expressed understanding and agreement. All questions were answered. Thank you for involving us in the care of your patient. Please call with any questions. History of Present Illness History of present illness: Mr. Flores is a 47 year old male All Systems Review: The remainder of the systems were reviewed and are negative Results 12/21/17 04:07 12/21/17 04:07
[2017-12-21 11:50] VITALS: BP 150/90
--- NOTE | 2017-12-21 13:15 | Discharge Summary ---
- NOTES TO OUTPATIENT PROVIDER Notes to Outpatient Provider: none Date of Encounter: 12/21/17 Time of Encounter: 11:00 - Discharge Diagnosis (1) Right leg pain Priority: Primary Status: Acute (2) Arterial occlusion Priority: Primary Status: Acute (3) Ischemia of right lower extremity Priority: Primary Status: Acute (4) Tobacco abuse Priority: Primary Status: Chronic (5) Elevated blood pressure reading Priority: Secondary Status: Resolved (6) PFO (patent foramen ovale) Priority: Secondary Status: Acute Hospital course: Patient is a 47-year-old male with past medical history significant for tobacco abuse and hypertension who presents to the ER on 12/19/17 from an outside facility due to reported cold right foot. Patient was evaluated by an outside facility and was reported to have a dusky right foot with palpable pulses but there is concern for possible occlusion so patient was transferred to [facility] [place] for further evaluation. Vascular surgery was consulted from the ER and patient was taken to surgery status post right lower extremity thrombectomy. During patients hospital stay, he was found to have incidental finding of PFO. Cardiology evaluated patient with no further recommendations. Patient will be discharged on Xarelto per vascular recommendations. - Time Spent with Patient Total time spent providing and/or coordinating discharge services: Less than 30 minutes - Discharge Medications Prescriptions: HYDROcodone/Acet 5/325 mg [Emerado 5-325 mg] 1 tab PO Q12HR PRN 5 Days #10 tablet PRN Reason: Moderate Pain Aspirin Enteric Coated [Aspirin EC] 81 mg PO DAILY #30 tablet. Nicotine Patch [Nicoderm] 21 mg TD DAILY #28 patch.td24 Rivaroxaban [Xarelto] 20 mg PO DAILY 30 Days #30 tablet Rivaroxaban [Xarelto] 20 mg PO 1700 #60 tablet Home Medications: Cetirizine HCl [All Day Allergy] 10 mg PO DAILY 12/19/17 [History] Fluticasone Propionate [Allergy Relief] 1 spr NS DAILY 12/19/17 [History] Aspirin Enteric Coated [Aspirin EC] 81 mg PO DAILY #30 tablet. 12/21/17 [Rx] HYDROcodone/Acet 5/325 mg [Emerado 5-325 mg] 1 tab PO Q12HR PRN 5 Days #10 tablet 12/21/17 [Rx] Nicotine Patch [Nicoderm] 21 mg TD DAILY #28 patch.td24 08/14/18 [Rx] Rivaroxaban [Xarelto] 20 mg PO 1700 #60 tablet 12/21/17 [Rx] Rivaroxaban [Xarelto] 20 mg PO DAILY 30 Days #30 tablet 12/21/17 [Rx] Allergies/Adverse Reactions: 3 Allergy/AdvReac Type Severity Reaction Status Date / Time No Known Allergies Allergy Verified 12/19/17 01:12 Date of admission: 12/19/17 13:05 Primary care physician: PCP NONE Consults: 12/20/17 14:46 Consult to Cardiology [CONS] Routine Comment: Consulting Provider: Cardiology Esther Reason for Consult: RLE Arterial Embolism/Ischemia. PFO on ECHO. Call Completed: Yes - Constitutional Vitals: Temp Pulse Resp BP Pulse Ox 98.7 F 71 18 150/90 97 12/21/17 11:48 12/21/17 11:48 12/21/17 11:48 12/21/17 11:48 12/21/17 11:48 General appearance: Present: cooperative, A&O X 3, pleasant, no acute distress, obese, answers questions appropriately - Patient Status Disposition: Home, Self-Care Condition: Good - Discharge Instructions Instructions: Peripheral Artery Disease (DC) Follow Up With: Osman Andino DO [Partnered Physician] - (Office to call with follow-up appointment ) Caroline Liao CNP [Advanced Practice Nurse] - 12/28/17 10:45 am (Please take with you your new patient packet that you will receive in the mail filled out to your appointment. Show up 10 mins early. Please take with you to your appointment Picture ID, Ins. Card and all medications even over the counter medication. This office does not give out Narcotics. If you need to cancel please cancel 24 hours prior to your appointment call [phone].) Maksim Brennan MD [Partnered Physician] - 01/31/18 1:00 pm Forms: ED Satisfaction Letter, Work/School Release Additional Instructions: May remove bandage and shower on 12/21/2017. No tub baths or swimming until 01/12/2018. Wash wound gently and pat to dry. Applied dry gauze to wound daily for [address] Brennan at [phone] with questions or concerns. - VTE Documentation of Mechanical Device: Venous foot pump, device
[2017-12-21] MEDS ORDERED: *HR* Rivaroxaban 10 MG TABLET PO SCH (18:00)
== END 2017-12-21 15:01 | disposition home or self-care (01) | DRG 181 ==
LOC: 2NNU 03:50 → EMEROOARM 03:50 → 2NNU 07:55 → SUATTDRO 13:05
PROVIDERS: ADMIT Internal Medicine; ATTEND Hospitalist